=== PATIENT | female | born 1950 | race Caucasian/White ===

== ENCOUNTER 2018-02-22 10:54 | Emergency (ER) | END 2018-02-22 15:15 | disposition home or self-care (01) ==

== ENCOUNTER 2018-10-15 10:46 | Emergency (ER) | payer OTHER ==
[~2018-10-15] VITALS: Ht 157.5 cm; Wt 94.2 kg
[~2018-10-15 10:46] MED LIST: ALBU18HF INHALATION; ALBU2.5V3 NEB; ONDA4TAB14 PO; TIOT4MIS2 INHALATION
[2018-10-15 10:59] VITALS: BP 142/65; PULSE 73; RESP 20; Ht 157.5 cm; Wt 94.2 kg
[2018-10-15] MEDS ORDERED: IBUPROFEN 600 MG TAB PO ONE (13:00)
--- NOTE | 2018-10-15 13:42 | ERD ---
ER Documentation Chief Complaint Chief Complaint left hand/wrist pain, s/p fall yest. No deformity HPI 68-year-old female presents with left wrist pain after falling yesterday. She denies chest pain, shortness of breath or dizziness or syncope or loss of consciousness. She had some left knee pain and buckling and fell on left wrist. ROS All systems reviewed and are negative except as per history of present illness. Medications Home Meds Active Scripts Ondansetron (Ondansetron Odt) 4 Mg Tab.rapdis, 4 MG PO Q6H PRN for NAUSEA AND/OR VOMITING, #10 TAB Prov:DINAH LUIS MD 02/22/18 Reported Medications Albuterol Sulfate* (Albuterol Sulfate* Neb) 0.083%-3 Ml Neb, 2.5 MG NEB Q3H PRN for WHEEZING AND SOB, #30 VIAL 02/22/18 Albuterol Sulfate* (Ventolin HFA*) 18 Gm Hfa.aer.ad, 2 PUFF INHALATION Q6H PRN for WHEEZING AND SOB, #1 INHALER 02/22/18 Tiotropium [place] (Spiriva Respimat) 4 Gm Mist.inhal, 2 PUFF INHALATION DAILY, #1 INHALER 02/22/18 Allergies Allergies: Coded Allergies: Fish Containing Products (Verified Allergy, Mild, 02/22/18) Penicillins (Verified Allergy, Mild, 02/22/18) iodine (Verified Allergy, Mild, 02/22/18) PMhx/Soc Hx Respiratory Disorders: Yes (EMPHYSEMA) Hx Cardiac Disorders: Yes (HIGH CHOL) Hx Alcohol Use: No Hx Substance Use: No Hx Tobacco Use: No Smoking Status: Former smoker FmHx Family History: No diabetes, No coronary disease, No other Physical Exam Vitals Vital Signs Date Temp Pulse Resp B/P (MAP) Pulse Ox O2 O2 Flow FiO2 Time Delivery Rate 10/15/18 97.5 73 20 142/65 96 10:59 (90) Physical Exam Const: No acute distress Head: Atraumatic Eyes: Normal Conjunctiva ENT: Normal External Ears, Nose and Mouth. Neck: Full range of motion. No meningismus. Resp: Clear to auscultation bilaterally Cardio: Regular rate and rhythm, no murmurs Abd: Soft, non tender, non distended. Normal bowel sounds Skin: No petechiae or rashes Back: No midline or flank tenderness Ext: No cyanosis, or edema. Tenderness and swelling in the left wrist joint. No squeeze or tenderness in the snuffbox area. No deficits or restricted range of motion. No erythema or bleeding or lacerations. Neur: Awake and alert Psych: Normal Mood and Affect Results 24 hrs Current Medications Medications Dose Sig/Nell Start Time Status Last (Trade) Ordered Route PRN Stop Time Admin Dose Reason Admin Ibuprofen 600 mg ONCE ONCE 10/15/18 DC (Motrin) PO 13:00 10/15/18 13:00 Procedures/MDM X-ray left wrist 3V Interpreted by me: Scaphoid: Normal Bones: No fracture Joints: No dislocation Foreign body: None impression-degenerative changes of the left wrist without identified fracture dislocation. She was placed in a left wrist Velcro brace. Patient states that she is only able to take meloxicam for pain and she took some this morning. Patient has signs of left wrist sprain without identified fracture dislocation, signs of ischemia, deficits, compartment syndrome, infection. She will discharged home with primary care and orthopedic follow-up and return precautions for fevers, redness, new worsening symptoms or additional symptoms are related to her fall. The patient was stable with no new complaints during the ER course. Clinically, there is no current evidence to suggest meningitis, sepsis, acute abdomen, p neumonia, stroke, acute coronary syndrome, pulmonary embolism, aortic dissection or any other emergent condition appearing to require further evaluation or hospitalization. Patient counseled regarding my diagnostic impression and care plan. Prior to discharge all questions answered. Pt agrees with treatment plan and understands strict return precautions. Pt is instructed to follow up with primary care provider within 24-48 hours. Precautionary instructions provided including instructions to return to the ER if not improving or for any worsening or changing symptoms or concerns. Disclaimer: Inadvertent spelling and grammatical errors are likely due to EHR/dictation software use and do not reflect on the overall quality of patient care. Also, please note that the electronic time recorded on this note does not necessarily reflect the actual time of the patient encounter. Departure Diagnosis: Primary Impression: Wrist injury Encounter type: initial encounter Laterality: left Qualified Codes: S69.92XA - Unspecified injury of left wrist, hand and finger(s), initial encounter Condition: Stable Patient Instructions: Wrist Sprain Referrals: SAM SPICER MD [facility] Hours: Mon-Fri 9:00 AM - 5:00 PM Additional Instructions: X-ray read as no fracture although recommend orthopedic evaluation for ligaments or fracture not seen on x-ray, or no improvement in pain despite brace. May need authorization from primary doctor for orthopedist visit. Recheck otherwise for new or worsening symptoms. BETO BLISS MD Oct 15, 2018 13:42
== END 2018-10-15 14:27 | disposition home or self-care (01) ==
LOC: FTE 10:46
DX: S69.92XA Unspecified injury of left wrist, hand and finger(s), initial encounter (principal); W01.0XXA Fall on same level from slipping, tripping and stumbling without subsequent striking against object, initial encounter; Y92.9 Unspecified place or not applicable; Z87.891 Personal history of nicotine dependence

== ENCOUNTER 2018-11-04 14:12 | Emergency (ER) | payer OTHER ==
[~2018-11-04] VITALS: Ht 157.5 cm; Wt 100.0 kg
[~2018-11-04 14:12] MED LIST changes: +MELO7.5T38 PO
[2018-11-04 14:15] VITALS: BP 147/75; PULSE 79; RESP 20; Ht 157.5 cm; Wt 100.0 kg
[2018-11-04] MEDS ORDERED: morphine 4 MG/ML VIAL IV STA (14:34)
--- NOTE | 2018-11-04 15:29 | ERD ---
ER Documentation Chief Complaint Chief Complaint pt c/o r flank pain x 2 days HPI 68-year-old female presents the emergency department with her family for evaluation of right flank pain. Patient states that over the last 2 days she had an atraumatic right flank pain. The pain is localized to the right lower part of her back and does not radiate. Its associated with no fevers or chills or hematuria. Patient reports no nausea vomiting or diarrhea. She also states that she has a history of back pain and has run out of her usual pain medication. ROS All systems reviewed and are negative except as per history of present illness. Medications Home Meds Active Scripts Meloxicam* (Meloxicam*) 7.5 Mg Tablet, 7.5 MG PO DAILY for pain, #30 TAB Prov:DARRICK ESCOBAR 11/04/18 Ondansetron (Ondansetron Odt) 4 Mg Tab.rapdis, 4 MG PO Q6H PRN for NAUSEA AND/OR VOMITING, #10 TAB Prov:DINAH LUIS MD 02/22/18 Reported Medications Albuterol Sulfate* (Albuterol Sulfate* Neb) 0.083%-3 Ml Neb, 2.5 MG NEB Q3H PRN for WHEEZING AND SOB, #30 VIAL 02/22/18 Albuterol Sulfate* (Ventolin HFA*) 18 Gm Hfa.aer.ad, 2 PUFF INHALATION Q6H PRN for WHEEZING AND SOB, #1 INHALER 02/22/18 Tiotropium [place] (Spiriva Respimat) 4 Gm Mist.inhal, 2 PUFF INHALATION DAILY, #1 INHALER 02/22/18 Allergies Allergies: Coded Allergies: Fish Containing Products (Verified Allergy, Mild, 02/22/18) Penicillins (Verified Allergy, Mild, 02/22/18) iodine (Verified Allergy, Mild, 02/22/18) PMhx/Soc Medical and Surgical Hx: pt denies Surgical Hx Hx Neurological Disorder: No Hx Respiratory Disorders: Yes (EMPHYSEMA) Hx Cardiac Disorders: Yes (Hyperlipidemia) Hx Psychiatric Problems: No Hx Miscellaneous Medical Probl: No Hx Alcohol Use: No Hx Substance Use: No Hx Tobacco Use: No Smoking Status: Never smoker FmHx Supportive family at the bedside Physical Exam Vitals Vital Signs Date Temp Pulse Resp B/P (MAP) Pulse Ox O2 O2 Flow FiO2 Time Delivery Rate 11/04/18 98.9 79 20 147/75 97 14:15 (99) Physical Exam GENERAL: The patient is well developed and appropriate for usual state of health in no apparent distress HEENT: Pupils equal, round, and reactive to light. EOMI. There is no scleral icterus. NECK: C-spine is soft and supple, there is no meningismus. There is no cervical lymphadenopathy. LUNGS: Clear to auscultation bilaterally. There are no rales, wheezes or rhonchi. HEART: Regular rate and rhythm, no murmurs, clicks, rubs or gallops. ABDOMEN: Soft, non-tender, non-distended. There are bowel sounds in all four quadrants. No rebound or guarding. No CVA tenderness EXTREMITIES: There is no peripheral cyanosis or edema. No focal swelling or erythema. Back: No midline spinal tenderness or spasm. NEURO: The patient moves all four extremities with 5/5 strength. Cranial nerves II - XII are intact. Normal gait. Alert and oriented SKIN: There is no apparent rash or petechiae. HEME/LYMPHATIC: There is no evidence of excessive bruising or lymphedema. PSYCHIATRIC: The patient does not appear anxious or depressed. Result Diagram: 11/04/18 1440 11/04/18 1440 Results 24 hrs Laboratory Tests Test 11/04/18 14:34 11/04/18 14:40 11/04/18 14:45 Urine Color YELLOW Urine Clarity SLIGHTLY CLOUDY Urine pH 5.0 Urine Specific [place] 1.020 Urine Ketones NEGATIVE mg/dL Urine Nitrite NEGATIVE mg/dL Urine Bilirubin NEGATIVE mg/dL Urine Urobilinogen NEGATIVE mg/dL Urine Leukocyte Esterase NEGATIVE Phoebe/ul Urine Microscopic RBC 1 /HPF Urine Microscopic WBC 2 /HPF Urine Squamous Epithelial Cells FEW /HPF Urine Bacteria FEW /HPF Urine Mucus FEW /HPF Urine Hemoglobin NEGATIVE mg/dL Urine Glucose NEGATIVE mg/dL Urine Total Protein NEGATIVE mg/dl White Blood Count 6.9 10^3/ul Red Blood Count 4.90 10^6/ul Hemoglobin 14.6 g/dl Hematocrit 44.6 % Mean Corpuscular Volume 91.0 fl Mean Corpuscular Hemoglobin 29.8 pg Mean Corpuscular 32.7 g/dl Hemoglobin Concent Red Cell Distribution Width 13.6 % Platelet Count 220 10^3/UL Mean Platelet Volume 9.9 fl Immature Granulocytes % 0.900 % Neutrophils % 45.9 % Lymphocytes % 37.2 % Monocytes % 10.2 % Eosinophils % 4.8 % Basophils % 1.0 % Nucleated Red Blood Cells % 0.0 /100WBC Immature Granulocytes # 0.060 10^3/ul Neutrophils # 3.2 10^3/ul Lymphocytes # 2.6 10^3/ul Monocytes # 0.7 10^3/ul Eosinophils # 0.3 10^3/ul Basophils # 0.1 10^3/ul Nucleated Red Blood Cells # 0.0 10^3/ul Sodium Level 141 mmol/L Potassium Level 4.5 mmol/L Chloride Level 109 mmol/L Carbon Dioxide Level 23 mmol/L Anion Gap 9 Blood Urea Nitrogen 20 mg/dl Creatinine 1.24 mg/dl Est Glomerular Filtrat 43 mL/min Rate mL/min Glucose Level 97 mg/dl Calcium Level 10.4 mg/dl Total Bilirubin 0.2 mg/dl Direct Bilirubin 0.00 mg/dl Indirect Bilirubin 0.2 mg/dl Aspartate Amino 38 IU/L Transf (AST/SGOT) Alanine 46 IU/L Aminotransferase (ALT/SGPT) Alkaline Phosphatase 73 IU/L Total Protein 8.4 g/dl Albumin 4.8 g/dl Globulin 3.60 g/dl Albumin/Globulin Ratio 1.33 Lipase 85 U/L Bedside Urine pH (LAB) 5.0 Bedside Urine Protein (LAB) Negative Bedside Urine Glucose (UA) Negative Bedside Urine Ketones (LAB) Negative Bedside Urine Blood 1+ Bedside Urine Nitrite (LAB) Negative Bedside Urine Leukocyte Esterase Negative (L Current Medications Medications Dose Sig/Nell Start Time Status Last (Trade) Ordered Route PRN Stop Time Admin Dose Reason Admin Morphine 4 mg ONCE STAT 11/04/18 DC 11/04/18 Sulfate IV 14:34 14:58 (morphine) 11/04/18 14:35 Procedures/MDM Patient was taken to a room, seen and evaluated. Comfort measures were initiated. Diagnostic tests were ordered and reviewed. 3 LEAD RHYTHM STRIP: Normal sinus rhythm without ectopy REEVALUATION: 1520: Diagnostic tests were appreciated discussed with the patient and her family. After supportive measures in the emergency department, she appeared comfortable. MEDICAL DECISION MAKIN-year-old female presents the emergency part with flank pain of uncertain etiology. Differential diagnosis entertained was broad and potential high acuity focusing on muscular skeletal, renal and other concerns. At this time, patient's diagnostic test showed no evidence of kidney stones, urinary tract infection or other kidney type complaints. This appears to be musculoskeletal type pain and given her history of a slipped disc, this is likely the cause. Will be treated with outpatient supportive medication, but otherwise appears to be appropriate for discharge at this time. Departure Diagnosis: Primary Impression: Flank pain Condition: Stable Patient Instructions: Flank Pain, Uncertain Cause Additional Instructions: See your doctor for follow-up as discussed. Take a copy of your test results, if appropriate, to this follow-up visit. See your doctor or return here if your symptoms do not improve as expected. At any time, please return to the emergency department for any change or worsening in her symptoms. DARRICK ESCOBAR Nov 04, 2018 15:29
== END 2018-11-04 15:57 | disposition home or self-care (01) ==
LOC: E/R 14:12
DX: R10.9 Unspecified abdominal pain (principal)
CPT/HCPCS: 36415; 80053; 81001; 81003; 83690; 85025; 87086; 96374; 99284; J2270